=== PATIENT | female | born 1960 | race Caucasian/White ===

== ENCOUNTER 2024-11-16 18:06 | Emergency (ER) | payer MEDICARE, OTHER, SELFPAY ==
[2024-11-16] VITALS (35 sets, daily range): BP systolic 136–187; BP diastolic 73–106; PULSE 52–77; RESP 13–24; TEMP 35.9; O2SAT 96–99
--- NOTE | 2024-11-16 18:00 | RT.EKG_ITS ---
APPROVED REPORT Exam: Resting ECG Reason for Exam: SOB, Weakness Patient Location: E HR:70 bpm ECG Measurements Heart Rate 70 AXIS NE 140 P 77 QRSd 106 QRS 82 QT 405 T 15 QTc 438 Conclusion Sinus rhythm...normal P axis, V-rate 60- 99
[2024-11-16 18:30] LABS: BE (Venous) 1 mmol/L (-2-3); HCO3 (Venous) 24 mmol/L (23-28); O2 Sat (Venous) 67 %; TCO2 (Venous) 20 mmol/L (24-29); pCO2 (Venous) 28 mmHg (41-51); pH (Venous) 7.54 (7.31-7.41); pO2 (Venous) 29 mmHg
--- NOTE | 2024-11-16 18:30 | W.ED.GENAD ---
Discharge Plan Disposition Patient Disposition: Home Condition: Stable Discharge Details Clinical Impression: Shortness of breath, Weakness Primary Care Provider: Unknown,Unknown ED Provider: Samuel Ledezma Home Meds and New Rx's Prescriptions: New lorazepam 1 mg tablet 1 mg PO TID PRNQty: 10 0RF Continued methylphenidate HCl 10 mg tablet 10 mg PO BID losartan 50 mg tablet 50 mg PO DAILY bupropion HCl [Wellbutrin SR] 150 mg tablet sustained-release 12 hr 150 mg PO DAILY lamotrigine [Lamictal] 200 mg tablet 200 mg PO DAILY levothyroxine [Synthroid] 88 mcg tablet 88 mcg PO DAILY nitrofurantoin macrocrystal 100 mg capsule 100 mg PO Q24H Rx Instructions: must administer with a meal/food omeprazole 20 mg capsule,delayed release(DR/EC) 20 mg PO DAILY diltiazem HCl [Cardizem CD] 120 mg capsule,extended release 24hr 120 mg PO DAILY polyethylene glycol 3350 [Miralax] 17 gram/dose powder 4 g PO DAILY rosuvastatin [Crestor] 20 mg tablet 20 mg PO DAILY cholecalciferol (vitamin D3) 125 mcg (5,000 unit) tablet 5,000 unit PO DAILY omega 2-epl-yts-fish oil [Fish Oil] 300-1,000 mg capsule 1 cap PO DAILY Jardiance 10 mg tablet 10 mg PO DAILY Caplyta 42 mg capsule 42 mg PO DAILY Discharge Instructions Additional Instructions: Your blood work and CAT scan did not show any concerning findings at this time. We did give you an anxiety medicine called lorazepam which seemed to help your symptoms. I would recommend following up with your primary care provider when you return to [place]. If you feel significantly more ill, have severe worsening shortness of breath or chest pain or new symptoms such as persistent vomiting return to the emergency department for reevaluation. HPI General Mode of arrival: ambulatory. Date/Time Provider Initiated Documentation: 11/16/24 18:07. Limitations to Documentation: no limitations. Information obtained by: patient. History of Present Illness 63 year old F presents to the emergency department with the chief complaint of shortness of breath, described as moderate, Patient started experiencing this day(s) (3) and it has been constant. No relieving factors improve symptom(s), No exacerbating factors reported . Patient notes chest pain and shortness of breath; denies cough, fever/chills and nausea/vomiting. Patient did receive the following treatments prior to arrival, none Related Data Home Medications ?Medication ?Instructions ?Recorded ?Confirmed bupropion HCl 150 mg tablet,12 hr 150 mg PO DAILY 11/16/24 11/16/24 sustained-release (Wellbutrin SR) cholecalciferol (vitamin D3) 125 5,000 unit PO DAILY 11/16/24 11/16/24 mcg (5,000 unit) tablet diltiazem HCl 120 mg 120 mg PO DAILY 11/16/24 11/16/24 capsule,extended release 24 hr (Cardizem CD) empagliflozin 10 mg tablet 10 mg PO DAILY 11/16/24 11/16/24 (Jardiance) lamotrigine 200 mg tablet 200 mg PO DAILY 11/16/24 11/16/24 (Lamictal) levothyroxine 88 mcg tablet 88 mcg PO DAILY 11/16/24 11/16/24 (Synthroid) lorazepam 1 mg tablet 1 mg PO TID PRN #10 tabs 11/16/24 losartan 50 mg tablet 50 mg PO DAILY 11/16/24 11/16/24 lumateperone 42 mg capsule 42 mg PO DAILY 11/16/24 11/16/24 (Caplyta) methylphenidate HCl 10 mg tablet 10 mg PO BID 11/16/24 11/16/24 nitrofurantoin macrocrystal 100 mg 100 mg PO Q24H 11/16/24 11/16/24 capsule omega 4-aed-gzb-fish oil 300 1 cap PO DAILY 11/16/24 11/16/24 mg-1,000 mg capsule (Fish Oil) omeprazole 20 mg capsule,delayed 20 mg PO DAILY 11/16/24 11/16/24 release polyethylene glycol 3350 17 4 g PO DAILY 11/16/24 11/16/24 gram/dose oral powder (Miralax) rosuvastatin 20 mg tablet (Crestor) 20 mg PO DAILY 11/16/24 11/16/24 Previous Rx's ?Medication ?Instructions ?Recorded lorazepam 1 mg tablet 1 mg PO TID PRN #10 tabs 11/16/24 Allergies Allergy/AdvReac Type Severity Reaction Status Date / Time Serotonin 5HT-3 Antagonists Allergy Agitation Verified 11/16/24 18:21 Sulfa (Sulfonamide Allergy kidney Verified 11/16/24 18:20 Antibiotics) General Stated Complaint: SOB LUKAS: 3 Review of Systems All systems reviewed & are unremarkable except as noted in HPI and below Constitutional Constitutional: Denies chills, Denies fever(s) and Reports weakness Cardiovascular Cardiovascular: Reports chest pain and Reports dyspnea Respiratory Respiratory: Denies cough and Reports dyspnea Gastrointestinal Gastrointestinal: Denies abdominal pain, Denies nausea and Denies vomiting Neurologic Neurologic: Reports weakness Psychiatric Psychiatric: Denies depression Exam Const General: no acute distress Orientation: alert HENID Head: normal to inspection Ears: external ears normal General nose exam: external nose normal Mouth: moist mucous membranes Eyes General: appearance normal, both eyes and all related structures Neck Neck: normal visual inspection Resp Effort & Inspection: normal respiratory effort and able to speak in complete sentences Auscultation: clear to auscultation bilaterally Cardio Jugular venous pressure: no JVD Rate: regular rate GI Palpation: soft and nontender Skin General skin exam: no rashes or lesions noted Neuro General: patient alert and patient oriented x3 Extrem General: normal to inspection Psych Mental Status: mental status grossly normal Course Vital Signs Vital signs: Vital Signs Temperature 35.9 C L 11/16/24 18:09 Pulse 68 11/16/24 18:09 Respiratory Rate 24 11/16/24 18:09 Blood Pressure 155/90 H 11/16/24 18:09 Pulse Oximetry 98 11/16/24 18:09 Temperature 35.9 C L 11/16/24 18:27 Temperature Source Oral 11/16/24 18:27 Pulse 68 11/16/24 18:27 Respiratory Rate 24 11/16/24 18:27 Respiratory Effort Short of Breath 11/16/24 18:27 Respiratory Depth Normal 11/16/24 18:27 Respiratory Pattern Normal 11/16/24 18:27 Blood Pressure 155/90 H 11/16/24 18:27 Pulse Oximetry 98 11/16/24 18:27 Pain Level 0 11/16/24 18:27 Medical Decision Making 63-year-old female with a history of bipolar disease, hypertension, denies any prior cardiac history comes in with several days of shortness of breath, feeling tremulous and lightheaded. Also has had some chest achiness sensations. Denies any vomiting or diaphoresis or radiation of pain. She says that she has had these episodes a few times over the last month. She denies any fevers, cough, she is a former smoker and denies any drug use Other than medical marijuana placement 6 weeks but she is use that. She is anxious on exam, lung sounds are clear. I did a bedside POCUS and has no pericardial effusion on the ultrasound with a normal-appearing EF. She did recently just drive up here from [place]. Given her symptoms we will check a CBC, CMP and troponins, if renal function is adequate we will also obtain a CT of the chest to evaluate for PE. Labs thus far unremarkable for emergent findings. Creatinine 1.3 which she says is her baseline. Pending CT read. She feels significant better after lorazepam so this could all be related to anxiety or panic attack. CTA finally came back and virtual radiology read as no acute findings. Patient remained stable and asymptomatic and delta troponin is also negative. Given reassuring workup I feel she is stable for discharge. I will write a short amount of lorazepam and she will follow-up with her PCP when she returns home to [place]. Return precautions given Differential Diagnosis Differential Diagnosis: CHF, PE, anemia, NSTEMI Medical Records Medical records reviewed: Yes I reviewed the patient's medical records. Lab Data Lab results reviewed: Yes I reviewed the patient's lab results. ECG Data Attestation: I personally reviewed and interpreted this ECG (s) as follows: Prior ECG tracings: not available for review Interpretation: Sinus rhythm, rate of 70, CO 140, no STEMI PFSH All Active Problems (Updated 11/16/24 @ 21:12 by Samuel Ledezma MD) Weakness (Acute) Shortness of breath (Acute) Social History Smoking/Tobacco Use Status: Former Tobacco Use Smoking risk assessment performed?: Yes Alcohol Intake: never Substance use type: does not use Do you feel safe at home: Yes Do you feel safe in your relationship?: Yes POCUS Exam (ED) Limited Cardiac Exam REASON FOR EXAM: Dyspnea VISUALIZED STRUCTURES: Left ventricle and Right ventricle VIEW OBTAINED: Parasternal long-axis PERTINENT FINDINGS/IMPRESSION: No LV dysfunction and No pericardial effusion Exam complete
[2024-11-16] MEDS: LORazepam 20 MG/10 ML VIAL IVP (18:31)
[2024-11-16 18:38] LABS: Abs Immature Grans 0.01 10^3/uL (0.0-0.06); Absolute Basophil Count 0.04 10^3/uL (0.0-0.2); Absolute Lymphocyte Count 3.14 10^3/uL (1.2-3.4); Absolute Monocyte Count 0.74 10^3/uL (0.1-0.8); Absolute Neutrophil Count 5.12 10^3/uL (1.2-6.7); Basophils % 0.4 %; HCT 48.9 % (36.0-46.0); HGB 16.6 g/dL (11.2-15.7); Immature Grans % 0.1 %; Lymphocytes % 34.7 %; MCHC 33.9 % (32.0-36.0); MCV 94 fL (80-95); Monocytes % 8.2 %; Neutrophils % 56.6 %; Platelet Count 212 10^3/uL (130-400); RBC 5.18 10^6/uL (3.93-5.22); RDW 12.2 % (11.7-14.6); RDW-SD 42.8 fL; WBC 9.05 10^3/uL (4.4-10.8)
[2024-11-16 18:59] LABS: ALT 29 U/L (14-59); AST 22 U/L (15-37); Albumin 4.6 g/dL (3.4-5.0); Alkaline Phosphatase 97 U/L (46-116); Anion Gap 15.8 mmol/L (3-11); BUN 11 mg/dL (7-18); Bilirubin, Total 0.9 mg/dL (0.2-1.0); CO2 23.2 mmol/L (21.0-32.0); CREATININE 1.3 mg/dL (0.55-1.02); Chloride 103 mmol/L (98-107); Estimated GFR 45.63 (mL/min/1.73m2); Glucose 99 mg/dL (74-106); Magnesium 2.1 mg/dL (1.8-2.4); NT-proBNP 209 pg/mL (<300); Sodium 142 mmol/L (136-145); TSH (W/Ref FT4) 2.95 uIU/mL (0.36-3.74); Total Protein 7.4 g/dL (6.4-8.2); Troponin I 6 ng/L (<or=51)
--- NOTE | 2024-11-16 19:00 | DI.CT_ITS ---
Exam(s) CT CHEST PE CTA EXAM: CT CHEST PE CTA CLINICAL HISTORY: dyspnea, chest pain. TECHNIQUE: Imaging Protocol: Axial CT angiography was performed with multi- slice acquisition and multi-planar and/or 3D reconstructions. Lung Computer Aided Detection (CAD) was utilized. CONTRAST MATERIAL: Intravenous: Omnipaque 350 contrast volume:60 mL COMPARISON: No exams were available for comparison FINDINGS: Tracheobronchial tree: Patent where visualized. No bronchiectasis. Pulmonary parenchyma: No consolidation or dominant measurable mass. No architectural distortion. Pulmonary Arteries: No evidence of filling defect to suggest pulmonary emboli. Mediastinum and Didi: No dominant adenopathy or fluid collection. The esophagus is unremarkable. Visualized thyroid gland: Unremarkable. Pleura: No effusion or pneumothorax. Heart: The heart is not dilated. No coronary artery calcifications are seen. No pericardial effusion. Aorta: Thoracic aorta non-dilated. No evidence of dissection. Atherosclerotic calcification is present. Upper abdomen: Unremarkable. Soft tissues: Unremarkable. Bones: Within normal limits for the patient's age.There is a right convex thoracic scoliosis. IMPRESSION: 1. No evidence of pulmonary embolism, thoracic aortic dissection or aneurysm. 2. The preliminary [facility] report was reviewed. RADIATION DOSE DELIVERED: 45.56mGy.cm Total DLP DATA REPOSITORY: All CT scans at this facility are submitted to the National Radiology Data Registry (NRDR) Dose Index Registry (DIR) with the [employer] (A[employer]). RADIATION OPTIMIZATION: All CT scans at this facility use at least one of these dose optimization techniques: automated exposure control; mA and/or kV adjustment per patient size (includes targeted exams where dose is matched to clinical indication); or iterative reconstruction.
[2024-11-16] MEDS: Omnipaque 350 MG/ML 100 ML BTL IJ (19:12)
[2024-11-16] MEDS: Normal Saline - Diluent 50 ML VIAL IJ (19:13)
[2024-11-16 19:14] LABS: INR 1.1 (0.9-1.1); PTT Activated 23.4 sec (20.6-30.2); Prothrombin Time 11.1 sec (9.1-11.1)
[2024-11-16 19:38] LABS: Troponin I 7 ng/L (<or=51)
[2024-11-16 19:50] LABS: Bilirubin Negative (Negative); Blood Negative (Negative); Clarity Clear (Clear); Glucose Negative (Negative); Ketones Trace mg/dL (Negative); Leukocyte Esterase Negative (Negative); Nitrite Negative (Negative); Urobilinogen 0.2 mg/dL (Up to 0.2); pH 7.5 (5-8)
[2024-11-16 20:16] LABS: COVID-19 PCR Negative (Negative); Influenza A PCR Negative (Negative); Influenza B PCR Negative (Negative); RSV PCR Negative (Negative)
[2024-11-16 20:20] LABS: Source Nasopharynx
--- NOTE | 2024-11-16 21:00 | DI.[facility]_ITS ---
PROCEDURE INFORMATION: Exam: CTA Chest With Contrast Exam date and time: 11/16/2024 7:11 PM Age: 63 years old Clinical indication: Other: Unspecified; Dyspnea, chest pain TECHNIQUE: Imaging protocol: Computed tomographic angiography of the chest with contrast. Exam focused on the arteries. 3D rendering (Not supervised by radiologist): MIP and/or 3D reconstructed images were created by the technologist. COMPARISON: No relevant prior studies available. FINDINGS: Pulmonary arteries: Normal. No pulmonary emboli. Aorta: Unremarkable. No aortic aneurysm. No aortic dissection. Lungs: Unremarkable. No consolidation. No masses. Pleural spaces: Unremarkable. No pneumothorax. No pleural effusion. Heart: Unremarkable. No cardiomegaly. No pericardial effusion. Lymph nodes: Unremarkable. No enlarged lymph nodes. Bones/joints: Unremarkable. No acute fracture. Soft tissues: Unremarkable. IMPRESSION: No evidence for pulmonary embolus. Dictated and Authenticated by: Anabella King MD. Orderin Darien Baker MD
[2024-11-16] MEDS: LORazepam 1 MG TAB PO (21:23)
== END 2024-11-16 21:26 | disposition home or self-care (01) ==
LOC: ER 21:32
PROVIDERS: Emergency Provider Emergency Medicine
DX: R06.02 Shortness of breath (principal); R53.1 Weakness; R00.1 Bradycardia, unspecified; I10 Essential (primary) hypertension; Z87.891 Personal history of nicotine dependence
CPT/HCPCS: 71275; 80053; 82805; 87637; 93005; 93308; 99285; 81003; 83735; 83880; 84443; 84484; 85025; 85610; 85730; 93010; 99284; J2060; J3490

== ENCOUNTER 2024-11-18 22:49 | Emergency (ER) | payer MEDICARE, OTHER, SELFPAY ==
[2024-11-18] VITALS (12 sets, daily range): BP systolic 82–114; BP diastolic 56–62; PULSE 48–54; RESP 14–19; TEMP 36.8; O2SAT 93–98
--- NOTE | 2024-11-18 22:50 | W.ED.GENAD ---
Discharge Plan Disposition Patient Disposition: Home Discharge Details Clinical Impression: Dizziness, Hypotension Primary Care Provider: Unknown,Unknown ED Provider: Joss San [place] Meds and New Rx's Prescriptions: Continued methylphenidate HCl 10 mg tablet 10 mg PO BID losartan 50 mg tablet 50 mg PO DAILY bupropion HCl [Wellbutrin SR] 150 mg tablet sustained-release 12 hr 150 mg PO DAILY lamotrigine [Lamictal] 200 mg tablet 200 mg PO DAILY levothyroxine [Synthroid] 88 mcg tablet 88 mcg PO DAILY nitrofurantoin macrocrystal 100 mg capsule 100 mg PO Q24H Rx Instructions: must administer with a meal/food omeprazole 20 mg capsule,delayed release(DR/EC) 20 mg PO DAILY diltiazem HCl [Cardizem CD] 120 mg capsule,extended release 24hr 120 mg PO DAILY polyethylene glycol 3350 [Miralax] 17 gram/dose powder 4 g PO DAILY rosuvastatin [Crestor] 20 mg tablet 20 mg PO DAILY cholecalciferol (vitamin D3) 125 mcg (5,000 unit) tablet 5,000 unit PO DAILY omega 2-bzt-tcb-fish oil [Fish Oil] 300-1,000 mg capsule 1 cap PO DAILY Jardiance 10 mg tablet 10 mg PO DAILY Caplyta 42 mg capsule 42 mg PO DAILY lorazepam 1 mg tablet 1 mg PO TID PRNQty: 10 0RF Discharge Instructions Additional Instructions: You were seen in the emergency department following your fall. Your CAT scan showed no sign of any bleeding in your head. Your blood work showed no sign of any damage to your heart. As we discussed if you develop any chest pain any difficulty breathing or take any other falls please return to the emergency department. Please return if you develop any weakness in your extremities. Please continue taking your regular medications as previously prescribed. HPI General Date/Time Provider Initiated Documentation: 11/18/24 22:50. HPI Narrative: MDM This is an elderly appearing 63-year-old normothermic and not tachycardic female found down with slurred speech and presentation concerning for the possibility of CVA for which patient will undergo CT angiogram of her head and neck with possibility of neurological consultation. Fingerstick blood glucose within normal limits. Patient certainly could have had adverse effects from her additional medication doses of lumateperone which can cause somnolence. She did not however take additional doses of diltiazem nor losartan to explain her hypotension and bradycardia on arrival. I considered sepsis however the patient was not having a cough to suggest pneumonia. No dysuria or frequency to suggest UTI so we will defer empiric broad-spectrum antibiotics lactate and blood cultures. No pain out of proportion to suggest necrotizing soft tissue infection. She had no nystagmus to suggest posterior circulation CVA. No chest pain to suggest ACS and ECG is not suggestive however will obtain troponin to assess for myocardial injury. Patient is in a sinus bradycardia but there are no blocks. She has had no black or bloody stools to suggest GI bleed and she is not on any blood thinners. She is not short of breath to suggest acute heart failure so I did not complete a bedside echocardiogram. She has no murmur to suggest aortic stenosis. She has no epsilon wave in the anterior precordium to suggest arrhythmogenic right ventricular dysplasia. QTc neither long or short. No signs of Brugada. She does have a short ME interval but no obvious delta wave to suggest WPW. Will obtain CT head and reassess. There is unclear whether or not patient had a syncopal episode. 12:[address] angiogram and CT head were both unremarkable. Her blood pressure improved in the emergency department. She remained neurologically intact. Given her subjective improvement and her consistent and reassuring neurological exam I did not feel that the patient required consultation with neurology. I considered obtaining MRI however in the absence of any neurological deficits I did not feel that the patient required an MRI. She had no tonic-clonic activity to suggest seizure so no indication for EEG. No fevers no nuchal rigidity so my suspicion is low for meningitis. Will ensure patient can pass ambulatory trial in the ED. She has tolerated some p.o. liquids in the ED. Given that she was not having any pain I did not feel that her presentation represents a rhabdomyolysis so I did not obtain a CK level. Furthermore patient's family felt that she was down for less than 1 hour. 1:09 AM Patient ambulated in the emergency department. She felt markedly improved. Her blood pressure normalized. I met with the patient and her [id number]. We discussed return indications including any weakness and nausea or vomiting or any chest pain. Patient understood her return indications and was discharged with an empiric trial of expectant outpatient management. HPI This is a patient presenting for evaluation of medication overdose. She is accompanied by her [id number]. The patient's [id number] reports that the patient was found on the floor by her , exhibiting slurred speech and confusion. It was discovered that she had inadvertently taken a double dose of her evening medications, including lorazepam at 1:32. The patient does not recall taking zolpidem but mentions possibly consuming a sleep aid. She also mentions taking Lamictal, loratadine, and nitrofurantoin as a prophylactic measure. The [id number] suspects an overdose of lamotrigine 400 mg, rosuvastatin 40 mg, Caplyta 84 mg, Jardiance 20 mg, and nitrofurantoin 200 mg. There were additional unidentified pills in her pill pack, which could be either potassium or methylphenidate. The patient has been experiencing intermittent lightheadedness, dizziness, and a general feeling of being unwell for the past three days. Yesterday, she appeared to stumble slightly and experienced shortness of breath. Despite these symptoms, she was able to perform routine activities such as grocery shopping and reading this morning. She reports no unusual events today. She recalls falling while attempting to get back into bed and was assisted by her son. She is currently on antihypertensive medication, specifically diltiazem, which she takes in the morning. She reports no known cardiac issues. She reports no chest pain, dyspnea, or abdominal discomfort prior to the incident. Exam General: Elderly-appearing in no acute distress speaking in complete sentences. Head: Normocephalic, atraumatic. Eye:[Pupils equal, round reactive to light.] Extraocular eye movements intact. No conjunctival injection. No scleral icterus. Ear, nose, mouth, throat: Grossly normal inspection. Normal voice, handling secretions normally. Neck: Trachea midline. Cardiovascular: Well-perfused distal extremities. Regular rhythm with slow rate. Respiratory: Nonlabored respiration. Clear lungs bilaterally. Gastrointestinal: Nondistended abdomen. Soft nontender. Musculoskeletal: No significant lower extremity pitting edema. Moving all 4 extremities spontaneously. Skin: Normal for age and race, grossly normal temperature and turgor. No acute rash. Neurologic: Alert and appropriate, no apparent acute deficits. GCS 15. Cranial nerves II through XII intact grossly. No dysmetria. No dysdiadochokinesia. No pronator drift. 5 out of 5 strength bilateral upper and lower extremities. Psychiatric: Mood and manner are appropriate. Grooming and personal hygiene are appropriate. Related Data Home Medications ?Medication ?Instructions ?Recorded ?Confirmed bupropion HCl 150 mg tablet,12 hr 150 mg PO DAILY 11/16/24 11/16/24 sustained-release (Wellbutrin SR) cholecalciferol (vitamin D3) 125 5,000 unit PO DAILY 11/16/24 11/16/24 mcg (5,000 unit) tablet diltiazem HCl 120 mg 120 mg PO DAILY 11/16/24 11/16/24 capsule,extended release 24 hr (Cardizem CD) empagliflozin 10 mg tablet 10 mg PO DAILY 11/16/24 11/16/24 (Jardiance) lamotrigine 200 mg tablet 200 mg PO DAILY 11/16/24 11/16/24 (Lamictal) levothyroxine 88 mcg tablet 88 mcg PO DAILY 11/16/24 11/16/24 (Synthroid) lorazepam 1 mg tablet 1 mg PO TID PRN #10 tabs 11/16/24 losartan 50 mg tablet 50 mg PO DAILY 11/16/24 11/16/24 lumateperone 42 mg capsule 42 mg PO DAILY 11/16/24 11/16/24 (Caplyta) methylphenidate HCl 10 mg tablet 10 mg PO BID 11/16/24 11/16/24 nitrofurantoin macrocrystal 100 mg 100 mg PO Q24H 11/16/24 11/16/24 capsule omega 5-uei-vwb-fish oil 300 1 cap PO DAILY 11/16/24 11/16/24 mg-1,000 mg capsule (Fish Oil) omeprazole 20 mg capsule,delayed 20 mg PO DAILY 11/16/24 11/16/24 release polyethylene glycol 3350 17 4 g PO DAILY 11/16/24 11/16/24 gram/dose oral powder (Miralax) rosuvastatin 20 mg tablet (Crestor) 20 mg PO DAILY 11/16/24 11/16/24 Previous Rx's ?Medication ?Instructions ?Recorded lorazepam 1 mg tablet 1 mg PO TID PRN #10 tabs 11/16/24 Allergies Allergy/AdvReac Type Severity Reaction Status Date / Time Serotonin 5HT-3 Antagonists Allergy Agitation Verified 11/16/24 18:21 Sulfa (Sulfonamide Allergy kidney Verified 11/16/24 18:20 Antibiotics) General LUKAS: 3 PFSH All Active Problems (Updated 11/19/24 @ 00:49 by Joss San MD) Hypotension (Acute) Dizziness (Acute) Weakness (Acute) Shortness of breath (Acute) Social History Smoking/Tobacco Use Status: Former Tobacco Use Smoking risk assessment performed?: Yes Alcohol Intake: never Substance use type: does not use Do you feel safe at home: Yes Do you feel safe in your relationship?: Yes
--- NOTE | 2024-11-18 23:00 | RT.EKG_ITS ---
APPROVED REPORT Exam: Resting ECG Reason for Exam: tachycardia, hypotention Patient Location: E HR:53 bpm ECG Measurements Heart Rate 53 AXIS VT 114 P -9 QRSd 93 QRS 55 QT 485 T 60 QTc 456 Conclusion Incomplete analysis due to missing data in precordial lead(s) Sinus bradycardia...rate< 60 No Occlusion DC
--- NOTE | 2024-11-18 23:00 | DI.CT_ITS ---
Exam(s) CT BRAIN NECK CTA EXAM: CT BRAIN NECK CTA CLINICAL HISTORY: Slurred speech. TECHNIQUE: Imaging Protocol: Axial CT angiography was performed with multi- slice acquisition and multi-planar and/or 3D reconstructions. CONTRAST MATERIAL: Intravenous: Omnipaque 350 contrast volume:70 mL COMPARISON: No exams were available for comparison FINDINGS: CT Head W/O and W: Ventricles and Extra axial spaces: Normal in size and morphology for the patient's age. Hemorrhage: None. Cerebral parenchyma: There are areas of decreased attenuation in the white matter most consistent with chronic microvascular ischemic disease. No acute territorial infarct or mass effect. Midline shift: None. Brainstem/Cerebellum: Normal. Calvarium: Normal. Visualized Paranasal sinuses/Mastoids: Clear. Soft Tissues: Unremarkable. Enhancement: Unremarkable. CTA Neck W: Common Carotid: Right: No dissection, occlusion or significant stenosis. Left: No dissection, occlusion or significant stenosis. External Carotid: Right: No occlusion or significant stenosis. Left: No occlusion or significant stenosis. Internal Carotid: Right: No dissection, occlusion or significant stenosis. Left: No dissection, occlusion or significant stenosis. Vertebral Artery: Right: No dissection, occlusion or significant stenosis. Left: No dissection, occlusion or significant stenosis. Lung Apices: Normal. Bones: Within normal limits for the patient's age. Soft Tissues: Normal. Thyroid gland: Unremarkable. CTA Brain W: Internal Carotid Arteries: Mild atherosclerotic calcification of the right internal carotid artery. The left internal carotid arteries unremarkable. No occlusion, aneurysm or significant stenosis is present. Anterior Cerebral Arteries: Right: No aneurysm, occlusion or significant stenosis. Left: No aneurysm, occlusion or significant stenosis. Middle Cerebral Arteries: Right: No aneurysm, occlusion or significant stenosis. Left: No aneurysm, occlusion or significant stenosis. Posterior Cerebral Arteries: Right: No aneurysm, occlusion or significant stenosis. Left: No aneurysm, occlusion or significant stenosis. Vertebral Arteries: Right: No aneurysm, occlusion or significant stenosis. Left: No aneurysm, occlusion or significant stenosis. Basilar Artery: No aneurysm, occlusion or significant stenosis. IMPRESSION: 1. No large vessel occlusion or significant stenosis on the CT angiography of the head. 2. No acute intracranial process. 3. No occlusion or significant stenosis on the CT angiography of the neck. 4. The preliminary [facility] report was reviewed. RADIATION DOSE DELIVERED: 2,015.42mGy.cm Total DLP DATA REPOSITORY: All CT scans at this facility are submitted to the National Radiology Data Registry (NRDR) Dose Index Registry (DIR) with the [employer] ([employer]). RADIATION OPTIMIZATION: All CT scans at this facility use at least one of these dose optimization techniques: automated exposure control; mA and/or kV adjustment per patient size (includes targeted exams where dose is matched to clinical indication); or iterative reconstruction.
[2024-11-18] MEDS: Normal Saline 500 ML 1000 ML IV (23:17)
[2024-11-18 23:18] LABS: Abs Immature Grans 0.01 10^3/uL (0.0-0.06); Absolute Basophil Count 0.03 10^3/uL (0.0-0.2); Absolute Lymphocyte Count 1.69 10^3/uL (1.2-3.4); Absolute Neutrophil Count 4.23 10^3/uL (1.2-6.7); Basophils % 0.5 %; HCT 43.9 % (36.0-46.0); Immature Grans % 0.2 %; Lymphocytes % 26.2 %; MCH 31.5 pg (27.0-33.0); MCHC 32.8 % (32.0-36.0); MCV 96 fL (80-95); MPV 9.1 fL (8.0-11.0); Monocytes % 7.7 %; Neutrophils % 65.4 %; Platelet Count 159 10^3/uL (130-400); RBC 4.57 10^6/uL (3.93-5.22); RDW 12.4 % (11.7-14.6); RDW-SD 43.8 fL; WBC 6.46 10^3/uL (4.4-10.8)
[2024-11-18] MEDS: Omnipaque 350 MG/ML 100 ML BTL IJ (23:22)
[2024-11-18] MEDS: Normal Saline - Diluent 50 ML VIAL IJ (23:23)
[2024-11-18] MEDS: Normal Saline Flush 10 ML SYR IVP (23:23)
[2024-11-18 23:24] LABS: HGB 14.4 g/dL (11.2-15.7)
[2024-11-18 23:42] LABS: Anion Gap 8.6 mmol/L (3-11); BUN 16 mg/dL (7-18); CO2 28.4 mmol/L (21.0-32.0); CREATININE 1.4 mg/dL (0.55-1.02); Chloride 101 mmol/L (98-107); Estimated GFR 41.75 (mL/min/1.73m2); Glucose 103 mg/dL (74-106); Potassium 3.8 mmol/L (3.5-5.1); Sodium 138 mmol/L (136-145); TSH (W/Ref FT4) 4.09 uIU/mL (0.36-3.74); Troponin I 6 ng/L (<or=51)
--- NOTE | 2024-11-18 23:59 | DI.[facility]_ITS ---
Addendum created by Natanael Aaron MD on 11/19/2024 12:02:44 AM EDT: THIS REPORT CONTAINS FINDINGS THAT MAY BE CRITICAL TO PATIENT CARE. The findings were verbally communicated via telephone conference with ELIZABETH BERNAL at 12:02 AM EDT on 11/19/2024. The findings were acknowledged and understood. Initial report created on 11/18/2024 11:59:04 PM EDT: PROCEDURE INFORMATION: Exam: CTA Head Without And With Contrast, Arteriography Exam date and time: 11/18/2024 11:20 PM Age: 63 years old Clinical indication: Stroke-like symptoms; Speech disturbance; Additional info: Slurred speech TECHNIQUE: Imaging protocol: Computed tomographic angiography of the head without and with contrast. Exam focused on the arteries. 3D rendering (Not supervised by radiologist): MIP and/or 3D reconstructed images were created by the technologist. Radiation optimization: All CT scans at this facility use at least one of these dose optimization techniques: automated exposure control; mA and/or kV adjustment per patient size (includes targeted exams where dose is matched to clinical indication); or iterative reconstruction. Contrast material: OMNIPAQUE 350; Contrast volume: 70 ml; Contrast route: INTRAVENOUS (IV); Other technique: STROKE PROTOCOL was implemented. COMPARISON: No relevant prior studies available. FINDINGS: ANTERIOR CIRCULATION: Right internal carotid artery: Intracranial segment is patent with no significant stenosis or occlusion. No aneurysm. Right middle cerebral artery: No occlusion or significant stenosis. No aneurysm. Right anterior cerebral artery: No occlusion or significant stenosis. No aneurysm. Left internal carotid artery: Intracranial segment is patent with no significant stenosis. No aneurysm. Left middle cerebral artery: No occlusion or significant stenosis. No aneurysm. Left anterior cerebral artery: No occlusion or significant stenosis. No aneurysm. POSTERIOR CIRCULATION: Right vertebral artery: No occlusion or significant stenosis. No aneurysm. Left vertebral artery: No occlusion or significant stenosis. No aneurysm. Basilar artery: No occlusion or significant stenosis. No aneurysm. Right posterior cerebral artery: No occlusion or significant stenosis. No aneurysm. Left posterior cerebral artery: No occlusion or significant stenosis. No aneurysm. HEAD: Brain: Probable mild underlying microvascular ischemic changes with no intracranial mass, acute transcortical infarction or recent intracranial hemorrhage detected. Cerebral ventricles: No midline shift or hydrocephalus. Bones: No acute fracture. Paranasal sinuses: Grossly clear throughout. Mastoid air cells: Grossly clear bilaterally. Soft tissues: Unremarkable. IMPRESSION: 1. No large vessel stenosis or occlusion detected involving the major branches of the anterior or posterior intracranial circulation. 2. Probable mild underlying microvascular ischemic changes with no evidence of acute transcortical infarction or hydrocephalus. ASSESSMENT: ASPECTS (Vanessa Stroke Program Early CT Score) is 10. PROCEDURE INFORMATION: Exam: CTA Neck Without And With Contrast Exam date and time: 11/18/2024 11:20 PM Age: 63 years old Clinical indication: Stroke-like symptoms; Speech disturbance; Additional info: Slurred speech TECHNIQUE: Imaging protocol: Computed tomographic angiography of the neck without and with contrast. Exam focused on the cervical segments of the vasculature. 3D rendering (Not supervised by radiologist): MIP and/or 3D reconstructed images were created by the technologist. Radiation optimization: All CT scans at this facility use at least one of these dose optimization techniques: automated exposure control; mA and/or kV adjustment per patient size (includes targeted exams where dose is matched to clinical indication); or iterative reconstruction. Contrast material: OMNIPAQUE 350; Contrast volume: 70 ml; Contrast route: INTRAVENOUS (IV); COMPARISON: CT CHEST PE CTA 11/16/2024 7:11 PM FINDINGS: Right common carotid artery: No stenosis. No dissection or occlusion. Right internal carotid artery: No stenosis of the extracranial segment. No dissection or occlusion. Right external carotid artery: No occlusion or stenosis of the origin. Left common carotid artery: No stenosis. No dissection or occlusion. Left internal carotid artery: No stenosis of the extracranial segment. No dissection or occlusion. Left external carotid artery: No occlusion or stenosis of the origin. Right vertebral artery: No stenosis. No dissection or occlusion. Left vertebral artery: No stenosis. No dissection or occlusion. Soft tissues: Normal. No significant soft tissue swelling. Bones/joints: No acute fracture. IMPRESSION: No evidence of 50% or greater stenosis involving the cervical segments of the right or left internal carotid arteries by NASCET criteria. REFERENCES: NASCET CRITERIA. The degree of stenosis in the cervical segment of the internal carotid artery is based on NASCET criteria. Normal is no stenosis. Mild is less than 50% stenosis. Moderate is 50-69% stenosis. Severe is 70% to 99% stenosis. Total occlusion is no detectable patent lumen. Dictated and Authenticated by: Natanael Aaron MD. Orderin Mena Coreas MD
[2024-11-19] VITALS (7 sets, daily range): BP systolic 111; BP diastolic 62; PULSE 49–59; RESP 13–18; O2SAT 97–99
[2024-11-19 00:04] LABS: FREE T4 1.52 ng/dL (0.76-1.46)
[2024-11-19 00:05] LABS: ETHANOL BLOOD < 3.0 mg/dL (<10)
[2024-11-19 00:29] LABS: Troponin I 8 ng/L (<or=51)
== END 2024-11-19 01:44 | disposition home or self-care (01) ==
PROVIDERS: Emergency Provider Emergency Medicine
DX: R42 Dizziness and giddiness (principal); I95.9 Hypotension, unspecified; R00.1 Bradycardia, unspecified; Z79.899 Other long term (current) drug therapy; Z87.891 Personal history of nicotine dependence
CPT/HCPCS: 70496; 70498; 80048; 82962; 93005; 99285; 80320; 84439; 84443; 84484; 85025; 93010; 99284; J3490